=== PATIENT | female | born 1975 | race Caucasian/White ===

== ENCOUNTER 2020-09-01 16:50 | Outpatient (REF) | payer BC, SELFPAY ==
--- NOTE | 2020-09-01 16:50 | PAPFT_PTH ---
PATIENT: Mikala Schofield LOC: [facility]#:[id number] AGE/SX: 44/F ROOM: RE09/01/[address]: Gena Rainey : 1975 BED: DIS: 09/01/2020 SPEC #: [id number] RECD: 09/04/20 12:49 STATUS: SILVESTRE REBryson #: [id number] CLAY: 09/01/20 16:[address]: Gena Rainey DEPT: [facility] Cytology RECD BY: Odessa Lovell ENTERED: 09/04/20 12:49 SP TYPE: PAPFT OTHR DR: Rj Garcia Tissues: 1 - CX/ENDOCX FOR PAP SMEARS Procedures: PAP THIN PREP/[facility] Screening HPV DNA PROBE Comments: [id number]
== END 2020-09-01 16:51 | disposition home or self-care (01) ==
LOC: NCHCN 16:50
PROVIDERS: PCP Internal Medicine; Visit Provider Nurse Practitioner Family
DX: Z12.4 Encounter for screening for malignant neoplasm of cervix (principal); Z11.51 Encounter for screening for human papillomavirus (HPV)
CPT/HCPCS: 88142; 87624

== ENCOUNTER → 2021-02-20 03:11 | Outpatient (CLI) | payer SELFPAY ==
--- NOTE | 2021-02-20 08:30 | DI.RAD_ITS ---
Exam(s) XR SHOULDER RT COMPLETE 2+V EXAM: XR SHOULDER RT COMPLETE 2+V CLINICAL HISTORY: right shoulder pain, M25.511. TECHNIQUE: 2D digital imaging was performed. COMPARISON: No exams were available for comparison FINDINGS: BONES: No acute fracture is present. No bony destructive lesion is seen. JOINTS: No dislocation present. The AC joint shows no significant spurring. There is minimal spurri ng at the margin of the glenoid. SOFT TISSUE: There is calcification superior to the greater tuberosity consistent with calcific tendi nosis. Additional calcification is noted adjacent to the proximal humeral shaft anteriorly which li arash related to the biceps tendon. IMPRESSION: Calcific tendinosis. No evidence of fracture. DATA REPOSITORY: RADIATION DOSE DELIVERED:
== END ==
PROVIDERS: PCP Internal Medicine; Visit Provider Nurse Practitioner Family
DX: M25.511 Pain in right shoulder (principal); M75.31 Calcific tendinitis of right shoulder
CPT/HCPCS: 73030

== ENCOUNTER 2022-02-10 17:31 | Emergency (ER) | payer SELFPAY ==
[2022-02-10 17:35] VITALS: BP 159/109; PULSE 77; RESP 16; TEMP 36.2; O2SAT 98
--- NOTE | 2022-02-10 17:45 | DI.RAD_ITS ---
Exam(s) XR FINGER LT LITTLE EXAM: XR FINGER LT LITTLE CLINICAL HISTORY: pain, near distal amputation. TECHNIQUE: 2D digital imaging was performed. COMPARISON: No exams were available for comparison FINDINGS: 3 views There is a displaced fracture of the tuft of the distal phalanx with 3 millimeter distraction. Nailb ed involvement also evident. No radiopaque foreign body seen. IMPRESSION: Distal tuft fracture with displacement. DATA REPOSITORY: RADIATION DOSE DELIVERED:
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
--- NOTE | 2022-02-10 18:39 | DI.VRAD_ITS ---
PROCEDURE INFORMATION: Exam: XR Left Finger(s) Exam date and time: 02/10/2022 6:07 PM Age: 46 years old Clinical indication: Other: Pain near distal amputation TECHNIQUE: Imaging protocol: Radiologic exam of the Left fingers. Views: Minimum 2 views. COMPARISON: No relevant prior studies available. FINDINGS: Bones/joints: There is a slightly comminuted fracture of the distal tuft of the 2nd digit of the left hand. There is approximately 3 mm of distraction. There is nailbed involvement. There is mild medial displacement. Soft tissues: Normal. IMPRESSION: Fracture 2nd digit distal tuft with 3 mm of distraction and nailbed involvement. Dictated and Authenticated by: Yanet Bermudez MD. Ordering:FRANCI Bello MD
[2022-02-10] MEDS: Tetanus & Diphtheria Tox,ADULT 0.5 ML VIAL IM (23:22)
== END 2022-02-10 19:40 | disposition home or self-care (01) ==
PROVIDERS: Emergency Provider Emergency Medicine; PCP Internal Medicine
DX: S62.637B Displaced fracture of distal phalanx of left little finger, initial encounter for open fracture (principal); S68.127A Partial traumatic metacarpophalangeal amputation of left little finger, initial encounter; W23.0XXA Caught, crushed, jammed, or pinched between moving objects, initial encounter
CPT/HCPCS: 12001; 90471; 99284; 73140; 99283

== ENCOUNTER 2022-03-13 11:54 | Outpatient (CLI) | payer SELFPAY ==
--- NOTE | 2022-03-13 11:15 | DI.RAD_ITS ---
Exam(s) XR FINGER LT LITTLE EXAM: XR FINGER LT LITTLE CLINICAL HISTORY: f/u fracture. TECHNIQUE: 2D digital imaging was performed. COMPARISON: CR,XR XR FINGER LT LITTLE from 02/10/2022 FINDINGS: 3 views There is improved alignment of the fracture fragments of the tuft of the distal phalanx. No radiographic evidence of osteomyelitis IMPRESSION: DATA REPOSITORY: RADIATION DOSE DELIVERED:
== END 2022-03-13 11:55 | disposition home or self-care (01) ==
LOC: DIORS 11:55
PROVIDERS: PCP Internal Medicine; Referring Provider Internal Medicine; Visit Provider Student in an Organized Health Care Education/Training Program
DX: S62.637D Displaced fracture of distal phalanx of left little finger, subsequent encounter for fracture with routine healing (principal); X58.XXXD Exposure to other specified factors, subsequent encounter
CPT/HCPCS: 73140

== ENCOUNTER 2022-04-10 11:45 | Outpatient (CLI) | payer SELFPAY ==
--- NOTE | 2022-04-10 11:31 | DI.RAD_ITS ---
Exam(s) XR FINGER LT LITTLE EXAM: XR FINGER LT LITTLE CLINICAL HISTORY: LLF f/u TECHNIQUE: COMPARISON: CR XR FINGER LT LITTLE from 03/13/2022 FINDINGS: Two views were obtained. Previously described fracture of the distal phalanx of the little finger is again seen, no gross interval change in alignment of the fracture fragments comparison with examinat ion of March 13. IMPRESSION: RADIATION DOSE DELIVERED: Total DLP
== END 2022-04-10 11:46 | disposition home or self-care (01) ==
LOC: DIORS 11:46
PROVIDERS: PCP Internal Medicine; Referring Provider Internal Medicine; Visit Provider Student in an Organized Health Care Education/Training Program
DX: S62.637D Displaced fracture of distal phalanx of left little finger, subsequent encounter for fracture with routine healing (principal); S68.12 Partial traumatic metacarpophalangeal amputation of other and unspecified finger; X58.XXXD Exposure to other specified factors, subsequent encounter
CPT/HCPCS: 73140